=== PATIENT | female | born 1975 | race African-American/Black ===

== ENCOUNTER 2017-08-15 12:12 | Outpatient (CLI) | END 2017-08-15 12:13 | disposition home or self-care (01) | LOC: FCC-LAB 12:12 | PROVIDERS: ATTEND General Practice | DX: E78.5 Hyperlipidemia, unspecified (principal); I10 Essential (primary) hypertension; E11.9 Type 2 diabetes mellitus without complications; R51 Headache; R42 Dizziness and giddiness; Z79.899 Other long term (current) drug therapy | CPT/HCPCS: 36415; 80053; 80061; 83036; 84443; 85025 ==

== ENCOUNTER 2017-08-28 10:14 | Outpatient (CLI) ==
--- NOTE | 2017-08-28 11:43 | MAMMO ---
EXAM: Bilateral digital screening mammogram (2-D and 3-D) History: Screening Comparison: None available. Findings: MLO and CC views of bilateral breasts demonstrate predominately fatty replaced breast pare nchyma. CAD was reviewed by the radiologist. Tomosynthesis was performed. There are no dominant ma sses, no suspicious microcalcifications and no architectural distortions Impression: Negative mammogram. Recommend followup routine screening mammography in 1 year. BIRADS 1
== END 2017-08-28 10:15 | disposition home or self-care (01) ==
LOC: RAD 10:14
PROVIDERS: ATTEND General Practice
DX: Z12.31 Encounter for screening mammogram for malignant neoplasm of breast (principal)
CPT/HCPCS: 77067

== ENCOUNTER 2017-09-15 11:52 | Outpatient (CLI) | END 2017-09-15 11:53 | disposition home or self-care (01) | LOC: RHC-LAB 11:52 | PROVIDERS: ATTEND General Practice | DX: E11.9 Type 2 diabetes mellitus without complications (principal) | CPT/HCPCS: 36415; 82947; 83036 ==

== ENCOUNTER 2018-10-01 08:45 | Outpatient (CLI) | END 2018-10-01 08:46 | disposition home or self-care (01) | LOC: RHC-LAB 08:45 | PROVIDERS: ATTEND General Practice | DX: E11.9 Type 2 diabetes mellitus without complications (principal); I10 Essential (primary) hypertension; E78.5 Hyperlipidemia, unspecified | CPT/HCPCS: 36415; 80053; 80061; 81001; 83036; 83525; 84443; 85025 ==